=== PATIENT | male | born 1990 | race Caucasian/White ===

== ENCOUNTER → 2017-02-16 | Day surgery (SDC) | payer OTHER ==
[~2017-02-16] VITALS: Ht 182.9 cm; Wt 133.8 kg
[~2017-02-16] MED LIST: PERCOCET 325 MG1 TA2 PO
--- NOTE | 2017-02-16 12:49 | Operative Report ---
Operative/Inv Procedure Report Surgery Date: 02/16/17 Name of Procedure: Excision of cyst with local advancement (D) flap Pre-Operative Diagnosis: Pilonidal cyst Post-Operative Diagnosis: Same Estimated Blood Loss: scant Surgeon/[employer] Ware Dipper: Doe LOPEZ,Juan Miguel Rodrigues Anesthesia: local monitored anesthesi Drains: Quarter inch [place] Specimens: Pilonidal cyst with pits Operative/Procedure Note Note: After consent he is brought to the operating room laid prone. Sedation was obtained and his supragluteal cleft was prepped and draped. There were 3 midline pits and associated right-sided cyst superiorly. A D-shaped ellipse of skin was fashioned and marked. Incision made sharply around the pits and associated cyst. Subcutaneous tissues tissues were dissected with cautery and the cyst cavity and pits excised en bloc. There passed off the field. Wound was irrigated with saline and hemostasis achieved with cautery. It'll left- sided advancement flap was then fashioned bilateral elevating the subcutaneous tissues tissues off the underlying investing fascia. Flap was then closed off the midline with interrupted 3-0 nylon suture in a vertical mattress fashion. The inferior portion of the wound was left open with quarter-inch [place] drain. The drain was sutured to skin. Bacitracin ointment was applied and sterile dressings applied. Sponge and needle counts are correct CC: Glenn SILVA,En[place] Bill
== END ==
LOC: STS 00:45
DX: L05.91 Pilonidal cyst without abscess (principal); J45.909 Unspecified asthma, uncomplicated
CPT/HCPCS: 88304; C9399; J0131; J0690; J2250